=== PATIENT | male | born 1995 | race Two or more races ===

== ENCOUNTER 2024-02-04 22:37 | Emergency (ER) | payer OTHER ==
[~2024-02-04] VITALS: Ht 170.2 cm; Wt 77.1 kg
[2024-02-05] MEDS ORDERED: KETOROLAC TROMETHAMINE 30 MG VIAL IV STA (00:46)
[2024-02-05] MEDS ORDERED: KETOROLAC TROMETHAMINE 30 MG VIAL ONE (01:08)
[2024-02-05 01:39] LABS: HEMATOCRIT 41.7 % (39.0-48.0); HEMOGLOBIN 14.1 g/dL (13-16.00); MEAN CORPUSCULAR HEMOGLOBIN 30.4 pg (27.00-32.0); MEAN CORPUSCULAR HGB CONC 33.8 g/dl (32.0-36.0); PLATELET COUNT 341 K/uL (150-450); RED BLOOD COUNT 4.63 M/uL (4.00-6.00); RED CELL DISTRIBUTION WIDTH 14.2 % (11.5-14.5)
[2024-02-05 02:05] LABS: CALCIUM 9.4 mg/dL (8.5-10.1); CREATININE SERUM 1.23 mg/dL (0.70-1.30); GFR 69.57; POTASSIUM 4.05 mEq/L (3.5-5.1)
[2024-02-05] MEDS ORDERED: CEFTRIAXONE SODIUM 1,000 MG VIAL IV STA (03:28)
[2024-02-05] MEDS ORDERED: CEFTRIAXONE SODIUM 1,000 MG VIAL ONE (03:34)
[2024-02-05] MEDS ORDERED: LIDOCAINE HCL 1% 10ML VIAL ONE (03:34)
[2024-02-05 03:42] LABS: URINE APPEARANCE Turbid; URINE BILIRRUBIN Negative (NEGATIVE); URINE BLOOD Negative; URINE COLOR Yellow; URINE GLUCOSE Negative (NEGATIVE); URINE KETONE Trace (NEGATIVE); URINE LEUKOCYTE Large; URINE NITRATE Negative; URINE PROTEIN Trace (NEGATIVE)
[2024-02-05 03:46] LABS: URINE BACTERIA 265.8 uL (0.0-1933); URINE WBC 1772.4 uL (0.0-23.2)
[2024-02-05 04:24] LABS: URINE EPITHELIAL CELLS 0.4 uL (0.0-38.8)
[2024-02-05] MEDS ORDERED: KETO10TA2 PO (04:32)
[2024-02-05] MEDS ORDERED: CIPRO500 MG PO (04:32)
== END 2024-02-05 05:04 | disposition home or self-care (01) ==
LOC: ER 22:39
PROVIDERS: General Practice
DX: N45.1 Epididymitis (principal)
CPT/HCPCS: 36415; 76870; 96365; 99283; J0696; J1885